=== PATIENT | male | born 1970 | race African-American/Black ===

== ENCOUNTER 2019-09-17 23:45 | Emergency (ER) | payer MEDICARE, MEDICAID | END 2019-09-18 02:22 | disposition left against medical advice (07) | LOC: ER 23:45 | DX: Z53.21 Procedure and treatment not carried out due to patient leaving prior to being seen by health care provider (principal) ==

== ENCOUNTER 2022-11-11 08:06 | Emergency (ER) | payer MEDICARE, MEDICAID ==
[~2022-11-11] VITALS: Ht 177.8 cm; Wt 100.0 kg
[2022-11-11 09:49] VITALS: BP 142/73
== END 2022-11-11 09:50 | disposition home or self-care (01) ==
LOC: ER 08:06
DX: M25.561 Pain in right knee (principal)
CPT/HCPCS: 99281

== ENCOUNTER 2022-12-28 19:00 | Emergency (ER) | payer MEDICARE, MEDICAID ==
[~2022-12-28] VITALS: Ht 182.9 cm; Wt 105.0 kg
[2022-12-28 20:30] VITALS: BP 137/95
[2022-12-28] MEDS ORDERED: ACETAMINOPHEN 325MG TABLET PO ONE (20:30)
[2022-12-28] MEDS ORDERED: IBUPROFEN 400MG TABLET PO ONE (20:30)
[2022-12-28] MEDS ORDERED: IBUP-2028 MT (20:40)
== END 2022-12-28 20:50 | disposition home or self-care (01) ==
LOC: ER 19:00
DX: M54.50 Low back pain, unspecified (principal); M25.532 Pain in left wrist; V49.49XA Driver injured in collision with other motor vehicles in traffic accident, initial encounter; Y93.89 Activity, other specified; Y92.89 Other specified places as the place of occurrence of the external cause; Y99.8 Other external cause status
CPT/HCPCS: 73110; 99283